=== PATIENT | male | born 1970 | race Caucasian/White ===

== ENCOUNTER 2016-11-06 22:08 | Emergency (ER) | payer OTHER | END 2016-11-06 23:36 | disposition home or self-care (01) | LOC: D.ER 22:08 | DX: S69.92XA Unspecified injury of left wrist, hand and finger(s), initial encounter (principal); W26.8XXA Contact with other sharp object(s), not elsewhere classified, initial encounter; Y93.89 Activity, other specified; Y92.89 Other specified places as the place of occurrence of the external cause; S61.432A Puncture wound without foreign body of left hand, initial encounter; F32.9 Major depressive disorder, single episode, unspecified ==

== ENCOUNTER 2017-05-17 10:15 | Emergency (ER) | payer OTHER | END 2017-05-17 11:33 | disposition home or self-care (01) | LOC: D.ER 10:15 | DX: M54.2 Cervicalgia (principal); R51 Headache ==

== ENCOUNTER 2018-03-11 18:09 | Emergency (ER) | payer OTHER ==
[~2018-03-11] VITALS: Ht 188 cm; Wt 111.8 kg
[2018-03-11 18:17] VITALS: Ht 188 cm; Wt 111.8 kg
[2018-03-11] MEDS ORDERED: CELEXA20 MG PO (18:18)
[2018-03-11] MEDS ORDERED: SEROQUEL25 MG PO (18:18)
[2018-03-11 21:10] LABS: BASOPHILS 0.9 % (0-2); EOSINOPHILS 3.7 % (0-7); HEMATOCRIT 47.6 % (42.0-54.0); HEMOGLOBIN 16.5 g/dL (13.5-17.5); IMMATURE GRANULOCYTES 0.5 % (0-5); LYMPHOCYTES 32.1 % (15-50); MCH 31.1 pg (26.0-34.0); MCHC 34.7 g/dL (31.0-37.0); MCV 89.6 fL (80.0-100.0); MEAN PLATELET VOLUME 9.8 fL (7.4-10.4); MONOCYTES 11.4 % (2-11); NEUTROPHILS 51.4 % (40-80); PLATELET COUNT 217 10x3/uL (130-400); RBC 5.31 10x6/uL (4.20-6.10); RDW 13.2 % (11.5-14.5); WBC 8.6 10x3/uL (4.8-10.8)
[2018-03-11 21:31] LABS: APPEARANCE CLEAR (CLEAR); BILIRUBIN NEGATIVE (NEGATIVE); COLOR YELLOW (YELLOW); GLUCOSE NEGATIVE (NEGATIVE); KETONE NEGATIVE (NEGATIVE); NITRITE NEGATIVE (NEGATIVE); PROTEIN NEGATIVE (NEGATIVE); SPECIFIC GRAVITY 1.015 (1.005-1.020); UROBILINOGEN NORMAL (NORMAL)
[2018-03-11 21:34] LABS: ALBUMIN 3.7 g/dL (3.4-5.0); ALKALINE PHOSPHATASE 70 U/L (46-116); ALT (SGPT) 37 U/L (10-68); BILIRUBIN - TOTAL 0.32 mg/dL (0.2-1.3); CALC OSMOLALITY 278 mosm/kg (275-300); CALCIUM 8.7 mg/dL (8.5-10.1); CARBON DIOXIDE 25.5 mmol/L (21.0-32.0); CHLORIDE - SERUM 104 mmol/L (98-107); CREATININE - SERUM 1.1 mg/dL (0.6-1.3); GLUCOSE 91 mg/dL (74-106); POTASSIUM - SERUM 3.8 mmol/L (3.5-5.1); PROTEIN - SERUM 7.6 g/dL (6.4-8.2); SODIUM 140 mmol/L (136-145); UREA NITROGEN 13 mg/dL (7-18); eGFR NON AFRICAN AMERICAN 76 mL/min (90-120)
[2018-03-11 21:42] LABS: C-REACTIVE PROTEIN 0.4 mg/dL (0.0-0.9); THYROID STIMULATING HORMONE 2.53 uIU/mL (0.36-3.74)
[2018-03-11] MEDS ORDERED: BUTALB-APAP-CA1 EACH PO (23:47)
[2018-03-11 23:59] VITALS: BP 137/89
== END 2018-03-11 23:59 | disposition home or self-care (01) ==
LOC: D.ER 18:09
PROVIDERS: Family Medicine
DX: G43.909 Migraine, unspecified, not intractable, without status migrainosus (principal); R42 Dizziness and giddiness